=== PATIENT | female | born 1995 | race Caucasian/White ===

== ENCOUNTER 2018-06-21 06:05 | Day surgery (SDC) | payer OTHER ==
[2018-06-21] MEDS ORDERED: LACTATED RINGERS 1,000 ML IV ONE (06:31)
[2018-06-21] MEDS ORDERED: ceFAZolin 2 GM/50 ML 2 GM/50 ML BAG IV ONE (06:32)
[2018-06-21 06:48] LABS: HCG UR QUAL NEGATIVE
--- NOTE | 2018-06-21 07:02 | ANESTHESIA ---
Pre-Anesthesia VS, & Labs - Diagnosis Right ganglion cyst - Procedure Right ganglion cystectomy Vital Signs: Temp Pulse Resp BP Pulse Ox 36.1 C L 64 18 121/74 100 06/21/18 06:38 06/21/18 06:38 06/21/18 06:38 06/21/18 06:38 06/21/18 06:38 Height 5 ft 1 in Weight (kg) 63 kg - Is Patient ?: No - Lab Results Lab results reviewed: Yes Home Medications and Allergies Home Medications: Ambulatory Orders Desogestrel-Ethinyl Estradiol [Desogest-Eth Estra 0.15-0.03MG] 1 each PO 06/19/18 Desogestrel-Ethinyl Estradiol [Desogest-Eth Estra 0.15-0.03MG] 1 each PO 0 06/19/18 Allergies/Adverse Reactions: Allergies Allergy/AdvReac Type Severity Reaction Status Date / Time No Known Drug Allergies Allergy Verified 06/19/18 14:25 Anes History & Medical History - Anesthetic History Anesthesia Complications: reports: No previous complications Family history of Anesthesia Complications: Denies Family history of Malignant Hyperthermia: Denies - Medical History Cardiovascular: reports: None Pulmonary: reports: None Gastrointestinal: reports: Other Urinary: reports: None Neuro: reports: None Musculoskeletal: reports: Other Endocrine/Autoimmune: reports: None Blood Disorders: reports: None Skin: reports: None Smoking Status: Never smoker Psychosocial: reports: No issues indicated - Surgical History General: Appendectomy, Other Exam General: Alert Dental: WNL Mouth Opening: Greater than 4 Fingerbreadths Neck Mobility: Normal Mallampati classification: I Thyromental Distance: greater than 6 cm Respiratory: Lungs clear Cardiovascular: Regular rate Neurological: Normal speech Mental/Cognitive Status: Alert/Oriented X3 Plan Anesthesia Type: General Consent for Procedure(s) Verified and Reviewed: Yes Code Status: Attempt Resuscitation ASA classification: 1-Healthy patient Is this case an emergency?: No
[2018-06-21] MEDS ORDERED: BUPIVACAINE 0.5% PF 30 ML VIAL ONE (07:17)
[2018-06-21] MEDS ORDERED: ePHEDrine 50 MG/ML VIAL IVP ONE (07:45)
[2018-06-21] MEDS ORDERED: ONDANSETRON 4 MG/2 ML VIAL IVP ONE (07:45)
[2018-06-21] MEDS ORDERED: DEXAMETHASONE 4 MG/ML VIAL IVP ONE (07:45)
[2018-06-21] MEDS ORDERED: SODIUM CHLORIDE 0.9% 10 ML VIAL IV ONE (07:45)
[2018-06-21] MEDS ORDERED: MIDAZOLAM 2 MG/2 ML VIAL IVP ONE (07:45)
[2018-06-21] MEDS ORDERED: KETOROLAC 30 MG/ML VIAL IVP ONE (07:45)
[2018-06-21] MEDS ORDERED: PROPOFOL 200 MG/20 ML VIAL IVP ONE (07:45)
[2018-06-21] MEDS ORDERED: LIDOCAINE-MPF 2% 5 ML VIAL IM ONE (07:45)
[2018-06-21] MEDS ORDERED: fentaNYL 100 MCG/2 ML VIAL IVP ONE (07:45)
[2018-06-21] MEDS ORDERED: BUPIVACAINE 0.5% PF 30 ML VIAL INFIL ONE ×2 (07:59)
[2018-06-21] MEDS ORDERED: oxyCODONE 5 MG TABLET PO PRN (08:40)
[2018-06-21] MEDS ORDERED: ONDANSETRON 4 MG/2 ML VIAL IVP PRN (08:40)
[2018-06-21] MEDS ORDERED: HYDROmorphone 1 MG/ML CARPUJECT ONE (08:48)
[2018-06-21] MEDS ORDERED: fentaNYL 100 MCG/2 ML VIAL ONE (08:48)
--- NOTE | 2018-06-21 08:50 | OPERATIVE REPORT ---
Operative Report - General Procedure Date: 06/21/18 Planned Procedure: Right dorsal wrist mass excision Pre-Op Diagnosis: Right dorsal wrist ganglion Procedure Performed: Right dorsal wrist mass excision Post Op Diagnosis: Same - Procedure Note Primary Surgeon: Adrian Jansen Anesthesia Provider: Sarmad Pathology: Right Dorsal Wrist Mass Estimated Blood Loss (mL): 5 Complications: None - Other Other Information/Narrative: Dorsal wrist ganglion postoperative Protocol: Leave splint on until follow-up. Suture tails cut at 2 weeks. Range of motion from 2-6 weeks. Strengthening may begin at 6 weeks. Indication For Surgery: 22-year-old female with 1 year of over the dorsal aspect of the wrist. This made it difficult for her to do push-ups and she had a push- up waiver last time. I offered her nonoperative and operative treatment to include watchful waiting aspiration and surgical excision. She strongly desired a definitive procedure. I quoted her a 10-20% chance of recurrence with surgery. The risks, benefits, and alternatives were discussed. Risks include pain, bleeding, infection, damage to nearby structures, numbness, lack of symptom relief, implant complications, nonunion, need for further surgery, DVT, PE, stroke, and . Written consent was obtained. Procedure in Detail: The patient was met in the pre-operative hold area on the day of the procedure. The operative extremity was signed and questions were answered. The patient was brought to the operating room and a general anesthetic was administered. Supine position was used and bony prominences were padded. Standard prepping and draping was performed. A time out confirmed patient identification, laterality, procedure, allergies, antibiotics, and images. An Esmarch was used to exsanguinate the limb and the tourniquet was elevated to 200 mmHg. Total tourniquet time was 14 minutes. The wrist was flexed to accentuate the mass. A 3 cm transverse incision was made directly overlyintg the mass. Electrocautery was used to obtain hemosta sis. Scissor dissection was used to separate the mass from the surrounding extensor tendons and fascia. Traction was pulled on the mass with an Allis and I carefully dissected around it tracing the stalk back to the wrist capsule. The stalk was excised with a 5 mm square section of capsule. The mass was passed off to the back table and sent for pathology. I carefully inspected the wound to ensure that all of the cyst had been fully excised. The wound was then irrigated copiously with sterile saline. A layered closure was performed with approximation of the extensor retinaculum and the underlying dermis. A running Monocryl was used in the skin. 5 cc of half percent Marcaine was placed near the wound. A sterile dressing was applied and a volar resting splint was applied. The patient was awakened and transferred to recovery room.
[2018-06-21] MEDS ORDERED: oxyCODONE 5 MG TABLET ONE ×2 (09:17→09:22)
[2018-06-21 10:07] VITALS: BP 108/65
== END 2018-06-21 06:06 | disposition home or self-care (01) ==
LOC: SDS 06:05
PROVIDERS: ATTEND Orthopaedic Surgery
PROC: 0LB50ZZ Excision of Right Lower Arm and Wrist Tendon, Open Approach (ICD-10-PCS; principal; 2018-06-21 07:30)
DX: M67.431 Ganglion, right wrist (principal); F17.290 Nicotine dependence, other tobacco product, uncomplicated
CPT/HCPCS: 25111; 81025; A9270; J0690; J1170; J7120